=== PATIENT | male | born 1960 | race Caucasian/White ===

== ENCOUNTER 2021-11-18 15:34 | Outpatient (REF) | payer BC, SELFPAY ==
--- NOTE | ~2021-11-18 | XR_ITS ---
EXAMINATION: XR CHEST CLINICAL INFORMATION: Dyspnea COMPARISON: None TECHNIQUE: 2 views of the chest were obtained. FINDINGS: There is no evidence of acute parenchymal disease, pneumothorax, or pleural effusion. Heart normal size. No evidence of pulmonary edema. There is a prominent right pericardial fat pad. XR/XR chest 2V IMPRESSION: No acute disease.
[2021-11-18 16:41] LABS: MANUAL DIFF FLAG NO
[2021-11-18 17:14] LABS: Basophils Percent Auto 0.5 % (0-2); Eosinophils Absolute Auto 0.6 X10*3/uL (0.0-0.4); Eosinophils Percent Auto 7.9 % (0-4); Hematocrit 25.3 % (42.0-52.0); Imm Gran Abs Auto 0.03 X10*3/uL (0.00-0.03); Imm Gran Pct Auto 0.4 % (0.0-0.4); Lymphocytes Absolute Auto 1.9 X10*3/uL (1.2-4.9); Lymphocytes Percent Auto 25.4 % (20-40); Mean Corpuscular HGB Conc 26.5 g/dl (31.0-36.0); Mean Corpuscular Hemoglobin 19.1 pg (27.0-33.0); Mean Corpuscular Volume 72.3 fL (80.0-98.0); Mean Platelet Volume 10.1 fL (9.4-12.4); Monocytes Absolute Auto 0.6 X10*3/uL (0.1-1.2); Monocytes Percent Auto 7.8 % (2-11); Neutrophils Absolute Auto 4.3 x10*3/uL (2.0-8.3); Platelet Count 291 X10*3/uL (160-400); Red Cell Distribution Width 19.3 % (11.0-16.0); White Blood Count 7.4 X10*3/uL (4.8-10.8)
[2021-11-18 17:34] LABS: Hemoglobin 6.7 g/dl (14.0-18.0)
[2021-11-18 17:57] LABS: Ferritin 4 ng/mL (20-250)
== END 2021-11-18 15:35 | disposition home or self-care (01) ==
LOC: HO.LAB 15:34
PROVIDERS: PCP Internal Medicine; Visit Provider Internal Medicine
DX: R06.00 Dyspnea, unspecified (principal); D64.9 Anemia, unspecified
CPT/HCPCS: 36415; 71046; 82728; 85025

== ENCOUNTER → 2022-06-24 15:58 | Outpatient (BNVA) | payer BC, SELFPAY | PROVIDERS: PCP Nurse Practitioner Primary Care; Visit Provider Internal Medicine | DX: Z13.89 Encounter for screening for other disorder (principal) ==

== ENCOUNTER 2022-07-03 14:47 | Outpatient (REF) | payer BC, SELFPAY ==
--- NOTE | 2022-07-03 17:22 | PFT_ITS ---
Forced vital capacity is 89%, FEV1 of 83%, FEV1/FVC ratio is 70. KYS21-53 of 66% and MVV is 83%. Post bronchodilator therapy, there is slight improvement in FEV1 and IBN22-97. Total lung capacity 86% and residual volume 85%. Diffusion capacity 66%. CONCLUSION: There is evidence of mild obstructive airway disorder with significant response to bronchodilator therapy. This finding is consistent with mild bronchial asthma. Clinical correlation is recommended. John Farmer MD MSB/MODL / [id number]
== END 2022-07-03 14:48 | disposition home or self-care (01) ==
LOC: HO.RESP 14:47
PROVIDERS: PCP Nurse Practitioner Primary Care; Visit Provider Internal Medicine
DX: J45.909 Unspecified asthma, uncomplicated (principal)
CPT/HCPCS: 94060; 94727; 94729

== ENCOUNTER 2022-07-21 14:49 | Outpatient (REF) | payer BC, SELFPAY ==
[2022-07-21 15:30] LABS: MANUAL DIFF FLAG NO
[2022-07-21 16:26] LABS: Basophils Percent Auto 0.5 % (0-2); Eosinophils Absolute Auto 0.9 X10*3/uL (0.0-0.4); Eosinophils Percent Auto 10.7 % (0-4); Hematocrit 37.9 % (42.0-52.0); Hemoglobin 11.3 g/dl (14.0-18.0); Imm Gran Abs Auto 0.03 X10*3/uL (0.00-0.03); Imm Gran Pct Auto 0.4 % (0.0-0.4); Lymphocytes Absolute Auto 2.4 X10*3/uL (1.2-4.9); Lymphocytes Percent Auto 28.8 % (20-40); Mean Corpuscular HGB Conc 29.8 g/dl (31.0-36.0); Mean Corpuscular Hemoglobin 24.8 pg (27.0-33.0); Mean Corpuscular Volume 83.1 fL (80.0-98.0); Monocytes Absolute Auto 0.8 X10*3/uL (0.1-1.2); Monocytes Percent Auto 9.2 % (2-11); Neutrophils Absolute Auto 4.3 x10*3/uL (2.0-8.3); Neutrophils Percent Auto 50.4 % (45-73); Platelet Count 333 X10*3/uL (160-400); Red Blood Count 4.56 X10*6/uL (4.60-5.80); Red Cell Distribution Width 15.9 % (11.0-16.0); White Blood Count 8.5 X10*3/uL (4.8-10.8)
== END 2022-07-21 14:50 | disposition home or self-care (01) ==
LOC: HO.LAB 14:49
PROVIDERS: PCP Nurse Practitioner Primary Care; Visit Provider Internal Medicine
DX: J45.909 Unspecified asthma, uncomplicated (principal); D64.9 Anemia, unspecified; Z79.899 Other long term (current) drug therapy
CPT/HCPCS: 36415; 85025

== ENCOUNTER 2023-01-20 14:55 | Outpatient (AMB) | payer BC, SELFPAY ==
--- NOTE | 2023-01-20 15:23 | MHC.OFFVIS ---
Intake Vital Signs 01/20/23 15:24 Height 5 ft 6 in Weight 157 lb BMI 25.3 BP 120/70 Blood Pressure Location Lt brachial Position Sitting Pulse 53 Pulse Source Pulse Oximeter Pulse Oximetry (%) 99 Oxygen Delivery Method Room Air Intake Visit Reasons: S/p pft Intake Note: pt is here for follow up and states his breathing is fine, every once in a while he uses his rescue. does not use the nasal spray anymore. Steamer Blocker Required: No Allergies amoxicillin Allergy (Unknown, Verified 01/20/23 15:37) rash Medication List - Last Reconciled 01/20/23 by John Farmer MD albuterol sulfate 90 mcg/actuation 2 puffs inhalation Q4-6H PRN cetirizine (Zyrtec) 10 mg PO DAILY PRN fluticasone propionate 110 mcg/actuation (Flovent HFA) 2 puffs inhalation BID PRN Do you need a note to return to daycare/school/sports/work: No HPI S/p pft HPI Details 62 years old gentleman is here for 6 months follow-up. He has mild intermittent bronchial asthma. He was using Flovent-110 2 puffs b.i.d. for a few months, and then he actually stopped using it. He has been depending upon the rescue inhaler for emergencies. Uses albuterol HFA about once or twice a week at the most. He denies any wheezes or cough. He still has some nasal congestion off and on and uses Zyrtec 10 mg p.r.n. His anemia has been corrected. So he no longer has any dyspnea on exertion. [facility] Medical History Allergic rhinitis Anemia Asthma Dyspnea on exertion Social History Patient Tobacco Use Status: Never used Tobacco Review of Systems Const All systems reviewed & are unremarkable except as noted in HPI and below Eyes Reports no additional complaints ENT Reports no additional complaints Card Denies chest pain, Denies irregular heart rhythm and Denies leg edema Resp Reports as per HPI (SHORTNESS OF BREATH ON EXERTION IS THE ALMOST RESOLVED) GI Reports other (History of ulcerative colitis in the past.) Reports no additional complaints Musc Reports no additional complaints Skin/Breast Reports system reviewed and no additional complaints, except as documented Neuro Reports no additional complaints Physical Exam Vital Signs: Last Vital Signs Pulse 53 01/20/23 15:24 BP 120/70 01/20/23 15:24 Pulse Ox 99 01/20/23 15:24 Oxygen Delivery Method Room Air 01/20/23 15:24 BMI result Body Mass Index 25.3 Const General: healthy appearing, comfortable, no acute distress, alert and awake Orientation/consciousness: patient oriented x3 HEENT Head: Yes normal to inspection General nose exam: No nasal polyps present and No nasal discharge present Face and sinus: Yes sinuses nontender Mouth: oropharynx normal Throat: Yes posterior oropharynx normal Eyes General: appearance normal, both eyes and all related structures Neck Neck: Yes normal visual inspection, Yes no lymphadenopathy, Yes trachea midline and Yes no JVD Thyroid: Thyroid normal Chest Chest palpation & inspection: abnormal inspection of the chest (There is a mild deformity of the left ribcage, probably related to old rib ), normal palpation of entire chest wall and no tenderness Resp Effort & Inspection: normal respiratory effort Auscultation: clear to auscultation bilaterally, no crackles and no wheezes Cardio Palpation: normal PMI Rate: regular rate Rhythm: regular rhythm Heart sounds: no gallops and no murmurs Peripheral pulses: Peripheral pulses 2+ throughout GI Palpation (GI): Soft to palpation, nontender, No hepatosplenomegaly present and no masses Auscultation: normal bowel sounds Back/Spine/Pelvis Thoracic/Lumbar Spine: thoracic and lumbar spine normal to inspection Skin General skin exam: no rashes or lesions noted Neuro General: patient oriented x3 and no focal motor deficits Cranial nerves: Yes CN's II-XII intact bilaterally Extrem General: Yes normal to inspection, Yes no clubbing, cyanosis or edema and Yes no calf tenderness Psych Speech and movement: Normal speech and movement present Assessment & Plan Assessment & Plan (1) Asthma: Comment: HISTORY IS SUGGESTIVE OF MILD INTERMITTENT BRONCHIAL ASTHMA. PULMONARY FUNCTION TEST SHOWED MILD BRONCHIAL ASTHMA. TX:WAS TREATED WITH FLOVENT -110 2 PUFFS B.I.D. WHICH HE HAS NOW STOPPED USING. USES ALBUTEROL HFA 1 OR 2 PUFFS Q 6 HOURS ONLY FOR EMERGENCY, AND IS USING VERY INFREQUENTLY. NO NEED TO USE FLOVENT AT THIS TIME. Code(s): J45.909 - Unspecified asthma, uncomplicated (2) Allergic rhinitis: Comment: MILD INTERMITTENT, NO SPECIFIC TRIGORS. TX ; CLARITIN OR ZYRTEC PRN NO NEED TO USE SINGULAIR .. Code(s): J30.9 - Allergic rhinitis, unspecified (3) Anemia: Comment: WHEN SEEN IN NOVEMBER OF 2021 HE WAS VERY ANEMIC. THAT BEING THE MAIN REASON FOR HIS DYSPNEA ON EXERTION. IT HAS BEEN TREATED AND NOW HE FEELS FINE. HE TELLS ME THAT LAST HEMOGLOBIN WAS 15.2. Code(s): D64.9 - Anemia, unspecified Coding Level of Care Code Est Pt Level 3 (81333) Diagnoses Asthma J45.909 Allergic rhinitis J30.9 Anemia D64.9
[2023-01-20 15:24] VITALS: BP 120/70; PULSE 53; O2SAT 99; BMI 25.3
== END 2023-01-20 15:44 | disposition home or self-care (01) ==
PROVIDERS: PCP Nurse Practitioner Primary Care; Visit Provider Internal Medicine
DX: J45.909 Unspecified asthma, uncomplicated (principal); D64.9 Anemia, unspecified
CPT/HCPCS: 99213

== ENCOUNTER → 2023-01-20 14:55 | Outpatient (BNVA) | payer BC, SELFPAY | PROVIDERS: PCP Nurse Practitioner Primary Care; Visit Provider Internal Medicine ==

== ENCOUNTER 2023-07-27 09:53 | Outpatient (AMB) | payer BC, SELFPAY ==
--- NOTE | 2023-07-27 09:58 | MHC.OFFVIS ---
Intake Vital Signs 07/27/23 09:59 Height 5 ft 6 in Weight 152 lb 1.903 oz BMI 24.5 BP 120/70 Blood Pressure Location Lt brachial Position Sitting Pulse 60 Pulse Source Pulse Oximeter Pulse Oximetry (%) 97 Oxygen Delivery Method Room Air Intake Visit Reasons: S/p pft Intake Note: pt is here for follow up and states he has been having some wheezing and nasal congestion, random wheezing attacks. Linseed Oil Press Tender Required: No Allergies amoxicillin Allergy (Unknown, Verified 07/27/23 10:07) rash Medication List - Last Reconciled 07/27/23 by John Farmer MD albuterol sulfate 90 mcg/actuation 2 puffs inhalation Q4-6H PRN cetirizine (Zyrtec) 10 mg PO DAILY PRN fluticasone propionate 110 mcg/actuation (Flovent HFA) 2 puffs inhalation BID PRN HPI S/p pft HPI Details 62 YEARS OLD GENTLEMAN IS HERE FOR FOLLOW-UP AFTER 6 MONTHS. HE IS A CASE OF MILD ALLERGIC RHINITIS/BRONCHIAL ASTHMA. HE HAS 2 CATS AT HOME, HE DOES HAVE BOUTS OF COUGH AT NIGHT. DENIES ANY ATTACKS OF WHEEZING OR RUNNY NOSE. [facility] Medical History Asthma Allergic rhinitis Anemia Dyspnea on exertion Social History Patient Tobacco Use Status: Never used Tobacco Review of Systems Const All systems reviewed & are unremarkable except as noted in HPI and below Eyes Reports no additional complaints ENT Reports no additional complaints Card Denies chest pain, Denies irregular heart rhythm and Denies leg edema Resp Reports as per HPI (SHORTNESS OF BREATH ON EXERTION IS THE ALMOST RESOLVED) GI Reports other (History of ulcerative colitis in the past.) Reports no additional complaints Musc Reports no additional complaints Skin/Breast Reports system reviewed and no additional complaints, except as documented Neuro Reports no additional complaints Physical Exam Vital Signs: Last Vital Signs Pulse 60 07/27/23 09:59 BP 120/70 07/27/23 09:59 Pulse Ox 97 07/27/23 09:59 Oxygen Delivery Method Room Air 07/27/23 09:59 BMI result Body Mass Index 24.5 Const General: healthy appearing, comfortable, no acute distress, alert and awake Orientation/consciousness: patient oriented x3 HEENT Head: Yes normal to inspection General nose exam: No nasal polyps present and No nasal discharge present Face and sinus: Yes sinuses nontender Mouth: oropharynx normal Throat: Yes posterior oropharynx normal Eyes General: appearance normal, both eyes and all related structures Neck Neck: Yes normal visual inspection, Yes no lymphadenopathy, Yes trachea midline and Yes no JVD Thyroid: Thyroid normal Chest Chest palpation & inspection: abnormal inspection of the chest (There is a mild deformity of the left ribcage, probably related to old rib ), normal palpation of entire chest wall and no tenderness Resp Effort & Inspection: normal respiratory effort Auscultation: clear to auscultation bilaterally, no crackles and no wheezes Cardio Palpation: normal PMI Rate: regular rate Rhythm: regular rhythm Heart sounds: no gallops and no murmurs Peripheral pulses: Peripheral pulses 2+ throughout GI Palpation (GI): Soft to palpation, nontender, No hepatosplenomegaly present and no masses Auscultation: normal bowel sounds Back/Spine/Pelvis Thoracic/Lumbar Spine: thoracic and lumbar spine normal to inspection Skin General skin exam: no rashes or lesions noted Neuro General: patient oriented x3 and no focal motor deficits Cranial nerves: Yes CN's II-XII intact bilaterally Extrem General: Yes normal to inspection, Yes no clubbing, cyanosis or edema and Yes no calf tenderness Psych Speech and movement: Normal speech and movement present Assessment & Plan Assessment & Plan (1) Asthma: Comment: HE HAS MILD INTERMITTENT BRONCHIAL ASTHMA. ALLERGIC IN TYPE PULMONARY FUNCTION TEST SHOWED MILD BRONCHIAL ASTHMA. Code(s): J45.909 - Unspecified asthma, uncomplicated Plan: TX: EXPLAINED TO HIM THAT HE JUST NEEDS TO USE ALBUTEROL HFA 2 PUFFS Q 4-6 HOURS P.R.N.. HE DOES NOT NEED TO USE THE MAINTENANCE INHALER, FLOVENT. ADVISED TO STAY AT A DISTANCE FROM THE CATS. (2) Allergic rhinitis: Comment: MILD INTERMITTENT, NO SPECIFIC TRIGORS. Code(s): J30.9 - Allergic rhinitis, unspecified Plan: TX ; CLARITIN OR ZYRTEC PRN [id number] 2 SPRAY EACH NOSTRIL DAILY, P.R.N. Coding Level of Care Code Est Pt Level 3 (58947) Diagnoses Asthma J45.909 Allergic rhinitis J30.9
[2023-07-27 09:59] VITALS: BP 120/70; PULSE 60; O2SAT 97; BMI 24.5
== END 2023-07-27 10:19 | disposition home or self-care (01) ==
PROVIDERS: PCP Nurse Practitioner Primary Care; Referring Provider Nurse Practitioner Primary Care; Visit Provider Internal Medicine
DX: J45.909 Unspecified asthma, uncomplicated (principal); J30.9 Allergic rhinitis, unspecified
CPT/HCPCS: 99213

== ENCOUNTER → 2023-07-27 09:53 | Outpatient (BNVA) | payer BC, SELFPAY | PROVIDERS: PCP Nurse Practitioner Primary Care; Visit Provider Internal Medicine ==

== ENCOUNTER 2024-01-28 09:43 | Outpatient (REF) | payer BC, SELFPAY ==
[2024-01-28 10:24] LABS: MANUAL DIFF FLAG NO
[2024-01-28 10:53] LABS: Basophils Percent Auto 0.5 % (0-2); Eosinophils Absolute Auto 0.5 X10*3/uL (0.0-0.4); Eosinophils Percent Auto 7.4 % (0-4); Hematocrit 45.9 % (42.0-52.0); Hemoglobin 15.4 g/dl (14.0-18.0); Imm Gran Abs Auto 0.01 X10*3/uL (0.00-0.03); Imm Gran Pct Auto 0.2 % (0.0-0.4); Lymphocytes Absolute Auto 2.1 X10*3/uL (1.2-4.9); Lymphocytes Percent Auto 32.7 % (20-40); Mean Corpuscular HGB Conc 33.6 g/dl (31.0-36.0); Mean Corpuscular Hemoglobin 32.6 pg (27.0-33.0); Monocytes Absolute Auto 0.7 X10*3/uL (0.1-1.2); Monocytes Percent Auto 10.3 % (2-11); Neutrophils Absolute Auto 3.1 x10*3/uL (2.0-8.3); Neutrophils Percent Auto 48.9 % (45-73); Platelet Count 228 X10*3/uL (160-400); Red Blood Count 4.73 X10*6/uL (4.60-5.80); Red Cell Distribution Width 12.7 % (11.0-16.0); White Blood Count 6.3 X10*3/uL (4.8-10.8)
[2024-02-12 01:48] LABS: IgE Antibody (Anti-IgE IgG) 240 ng/mL (<168)
== END 2024-01-28 09:44 | disposition home or self-care (01) ==
LOC: HO.LAB 09:43
PROVIDERS: PCP Nurse Practitioner Primary Care; Visit Provider Internal Medicine
DX: J45.909 Unspecified asthma, uncomplicated (principal); J30.9 Allergic rhinitis, unspecified
CPT/HCPCS: 36415; 83520; 85025

== ENCOUNTER 2024-01-28 09:43 | Outpatient (AMB) | payer BC, SELFPAY ==
[2024-01-28 09:46] VITALS: BP 110/68; PULSE 57; O2SAT 98; BMI 23.3
--- NOTE | 2024-01-28 09:46 | A.OFFVIS_ITS ---
Vital Signs 01/28/24 09:46 Height 5 ft 6 in Weight 144 lb 6.444 oz BMI 23.3 BP 110/68 Blood Pressure Location Lt brachial Position Sitting Pulse 57 Pulse Source Pulse Oximeter Pulse Oximetry (%) 98 Oxygen Delivery Method Room Air Intake Visit Reasons: Dyspnea Intake Note: pt is here for follow up and states he is okay, some allergy flare up. for no reason. Clinic Office Assistant Required: No Allergies amoxicillin Allergy (Unknown, Verified 01/28/24 10:05) rash Medication List - Last Reconciled 01/28/24 by John Farmer MD albuterol sulfate 90 mcg/actuation 2 puffs inhalation Q4-6H PRN 30 days cetirizine (Zyrtec) 10 mg PO DAILY PRN fluticasone propionate 110 mcg/actuation (Flovent HFA) 2 puffs inhalation BID PRN Do you need a note to return to daycare/school/sports/work: No HPI HPI Dyspnea: Details: THIS 63 YEARS OLD GENTLEMAN COMES FOR FOLLOW-UP AFTER 6 MONTHS FOR HIS ALLERGIC RHINITIS AND BRONCHIAL ASTHMA. HE STATES THAT OVERALL HIS SYMPTOMS ARE WELL CONTROLLED AND HE NEEDS TO USE THE RESCUE INHALER ONLY ONCE IN A WHILE. HE DOES HAVE ALBUTEROL HFA ON HAND AND ALSO HAS FLOVENT-110 INHALER WHICH HE USES ONCE IN A WHILE IF SYMPTOMS GET WORSE. HE STILL HAS HIS CAT AT HOME , BUT SAY IS THAT HE DOES NOT GET ANY ACUTE ATTACK WHEN. HE IS IN CONTACT WITH THE CT HE HAS ONGOING NASAL CONGESTION MOSTLY ON THE LEFT SIDE. WHEEZING AND COUGH. OR VERY INFREQUENT [facility] Medical History Asthma Allergic rhinitis Anemia Dyspnea on exertion Social History Patient Tobacco Use Status: Never used Tobacco Review of Systems Const All systems reviewed & are unremarkable except as noted in HPI and below Eyes Reports no additional complaints ENT Reports no additional complaints Card Denies chest pain, Denies irregular heart rhythm and Denies leg edema Resp Reports as per HPI (SHORTNESS OF BREATH ON EXERTION IS THE ALMOST RESOLVED) GI Reports other (History of ulcerative colitis in the past.) Reports no additional complaints Musc Reports no additional complaints Skin/Breast Reports system reviewed and no additional complaints, except as documented Neuro Reports no additional complaints Physical Exam Const General: healthy appearing, comfortable, no acute distress, alert and awake Orientation/consciousness: patient oriented x3 HEENT Head: Yes normal to inspection General nose exam: nasal polyps (HE DOES HAVE A SMALL NASAL POLYP IN THE LEFT NOSTRIL) and No nasal discharge present Face and sinus: Yes sinuses nontender Mouth: oropharynx normal Throat: Yes posterior oropharynx normal Eyes General: appearance normal, both eyes and all related structures Neck Neck: Yes normal visual inspection, Yes no lymphadenopathy, Yes trachea midline and Yes no JVD Thyroid: Thyroid normal Chest Chest palpation & inspection: abnormal inspection of the chest (There is a mild deformity of the left ribcage, probably related to old rib ), normal palpation of entire chest wall and no tenderness Resp Effort & Inspection: normal respiratory effort Auscultation: clear to auscultation bilaterally, no crackles and no wheezes Cardio Palpation: normal PMI Rate: regular rate Rhythm: regular rhythm Heart sounds: no gallops and no murmurs Peripheral pulses: Peripheral pulses 2+ throughout GI Palpation (GI): Soft to palpation, nontender, No hepatosplenomegaly present and no masses Auscultation: normal bowel sounds Back/Spine/Pelvis Thoracic/Lumbar Spine: thoracic and lumbar spine normal to inspection Skin General skin exam: no rashes or lesions noted Neuro General: patient oriented x3 and no focal motor deficits Cranial nerves: Yes CN's II-XII intact bilaterally Extrem General: Yes normal to inspection, Yes no clubbing, cyanosis or edema and Yes no calf tenderness Psych Speech and movement: Normal speech and movement present Assessment & Plan Assessment & Plan (1) Allergic rhinitis: Comment: MILD INTERMITTENT, NO SPECIFIC TRIGORS. HE DENIES THAT HE GETS ANY ACUTE ATTACK WHEN HE IS IN CONTACT WITH CAT HE DOES HAVE A SMALL NASAL POLYP IN THE LEFT NOSTRIL. Code(s): J30.9 - Allergic rhinitis, unspecified Category: Medical Plan: ADVISED TO USE FLONASE -50 2 SPRAYS IN EACH NOSTRIL AT LEAST ONCE A DAY USE ZYRTEC 10 MG ONCE A DAY P.R.N. IF THERE IS ACTIVE NASAL CONGESTION. (2) Asthma: Comment: HE HAS MILD INTERMITTENT BRONCHIAL ASTHMA. ALLERGIC IN TYPE PULMONARY FUNCTION TEST SHOWED MILD BRONCHIAL ASTHMA. SEEMS TO BE UNDER GOOD CONTROL AT THIS TIME. Code(s): J45.909 - Unspecified asthma, uncomplicated Category: Medical Plan: USE ALBUTEROL HFA 2 PUFFS Q 4-6 HOURS ONLY P.R.N.. DOES HAVE FLOVENT-110 AT HOME, ADVISE THAT HE CAN USE IT FOR A FEW WEEKS ONLY IF SYMPTOMS BECOME ACTIVE. CBC WITH DIFF AND IGE LEVEL OR ORDERED. Orders: Orders Complete Blood Count Auto Diff Today J30.9 - Allergic rhinitis, unspecified, J45.909 - Unspecified asthma, uncomplicated IgE Antibody (Anti-IgE IgG) 1 Day J30.9 - Allergic rhinitis, unspecified, J45.909 - Unspecified asthma, uncomplicated Coding Level of Care Code Est Pt Level 3 (46654) Diagnoses Allergic rhinitis J30.9 Asthma J45.909
== END 2024-01-28 10:02 | disposition home or self-care (01) ==
PROVIDERS: PCP Nurse Practitioner Primary Care; Visit Provider Internal Medicine
DX: J30.9 Allergic rhinitis, unspecified (principal); J45.909 Unspecified asthma, uncomplicated
CPT/HCPCS: 99213

== ENCOUNTER 2025-01-30 09:27 | Outpatient (AMB) | payer BC, SELFPAY ==
--- NOTE | 2025-01-30 09:37 | A.OFFVIS_ITS ---
Vital Signs 01/30/25 09:38 Height 5 ft 7 in Weight 145 lb 8.081 oz BMI 22.8 BP 102/58 L Blood Pressure Location Lt brachial Position Sitting Pulse 56 Pulse Source Pulse Oximeter Pulse Oximetry (%) 99 Oxygen Delivery Method Room Air Intake Visit Reasons: Dyspnea Intake Note: pt is here for follow up and states he is doing well, only random allergy attacks for no reason, itchy ears not much short of breath Application Support Consultant Required: No Allergies amoxicillin Allergy (Unknown, Verified 01/30/25 09:42) rash Medication List - Last Reconciled 01/30/25 by John Farmer MD albuterol sulfate 90 mcg/actuation 2 puffs inhalation Q4-6H PRN 30 days cetirizine (Zyrtec) 10 mg PO DAILY PRN fluticasone propionate 110 mcg/actuation (Flovent HFA) 2 puffs inhalation BID PRN Do you need a note to return to daycare/school/sports/work: No HPI HPI Dyspnea: Details: This 64 years old very pleasant gentleman is here for his yearly visit. He has chronic allergic rhinitis and mild intermittent bronchial asthma. Both these conditions are due to nonspecific environmental allergies, and he also has a cat at home. He uses fluticasone -110 1 or 2 puffs twice a day but only p.r.n.. As well as albuterol HFA 2 puffs PRN. Similarly he uses Zyrtec 10 mg once a day only p.r.n. He states that the attacks of nasal congestion with the irritation in the throat leading to cough and wheezing, come off and on , when he is at home or even when outdoors. These attacks are not necessarily precipitated by closeness to the CAT. In between these episodes , he feels fine, COUNT INCLUDES THE [facility] Medical History Asthma Allergic rhinitis Anemia Dyspnea on exertion Social History Patient Tobacco Use Status: Never used Tobacco Review of Systems Const All systems reviewed & are unremarkable except as noted in HPI and below Eyes Reports no additional complaints ENT Reports no additional complaints Card Denies chest pain, Denies irregular heart rhythm and Denies leg edema Resp Reports as per HPI (SHORTNESS OF BREATH ON EXERTION IS THE ALMOST RESOLVED) GI Reports other (History of ulcerative colitis in the past.) Reports no additional complaints Musc Reports no additional complaints Skin/Breast Reports system reviewed and no additional complaints, except as documented Neuro Reports no additional complaints Physical Exam Const General: healthy appearing, comfortable, no acute distress, alert and awake Orientation/consciousness: patient oriented x3 HEENT Head: Yes normal to inspection General nose exam: nasal polyps (HE DOES HAVE A SMALL NASAL POLYP IN THE LEFT NOSTRIL) and No nasal discharge present Face and sinus: Yes sinuses nontender Mouth: oropharynx normal Throat: Yes posterior oropharynx normal Eyes General: appearance normal, both eyes and all related structures Neck Neck: Yes normal visual inspection, Yes no lymphadenopathy, Yes trachea midline and Yes no JVD Thyroid: Thyroid normal Chest Chest palpation & inspection: abnormal inspection of the chest (There is a mild deformity of the left ribcage, probably related to old rib ), normal palpation of entire chest wall and no tenderness Resp Effort & Inspection: normal respiratory effort Auscultation: clear to auscultation bilaterally, no crackles and no wheezes Cardio Palpation: normal PMI Rate: regular rate Rhythm: regular rhythm Heart sounds: no gallops and no murmurs Peripheral pulses: Peripheral pulses 2+ throughout GI Palpation (GI): Soft to palpation, nontender, No hepatosplenomegaly present and no masses Auscultation: normal bowel sounds Back/Spine/Pelvis Thoracic/Lumbar Spine: thoracic and lumbar spine normal to inspection Skin General skin exam: no rashes or lesions noted Neuro General: patient oriented x3 and no focal motor deficits Cranial nerves: Yes CN's II-XII intact bilaterally Extrem General: Yes normal to inspection, Yes no clubbing, cyanosis or edema and Yes no calf tenderness Psych Speech and movement: Normal speech and movement present Assessment & Plan Assessment & Plan (1) Allergic rhinitis: Comment: MILD INTERMITTENT, NO SPECIFIC TRIGORS. HE DENIES THAT HE GETS ANY ACUTE ATTACK WHEN HE IS IN CONTACT WITH CAT HE DOES HAVE A SMALL NASAL POLYP IN THE LEFT NOSTRIL. Code(s): J30.9 - Allergic rhinitis, unspecified Category: Medical Plan: Cetirizine 10 mg 1 tablet a day p.r.n. (2) Asthma: Comment: HE HAS MILD INTERMITTENT BRONCHIAL ASTHMA. ALLERGIC IN TYPE PULMONARY FUNCTION TEST SHOWED MILD BRONCHIAL ASTHMA. SEEMS TO BE UNDER GOOD CONTROL AT THIS TIME. Code(s): J45.909 - Unspecified asthma, uncomplicated Category: Medical Plan: ADVISED TO USE ALBUTEROL 2 PUFFS Q 6 HOURS P.R.N.. ALSO USES FLUTICASONE-110 1 PUFF A DAY PRN ( 4-5 DAYS A WEEK ) AND 2 PUFFS B.I.D. IF HIS SYMPTOMS GET ANY WORSE. Plan CONTINUE THE SAME. I ALSO ADVISED HIM THAT HE COULD CONTINUE TO FOLLOW-UP WITH THE PRIMARY CARE PHYSICIAN AND SEE ME ONLY IF SYMPTOMS GET WORSE. Medications: Changed From fluticasone propionate 110 mcg/actuation (Flovent HFA) 2 puffs inhalation BID PRN To fluticasone propionate 110 mcg/actuation 2 puffs inhalation BID PRN 12 grams 3RF ASTHMA 30 days Coding Level of Care Code Est Pt Level 3 (22457) Diagnoses Allergic rhinitis J30.9 Asthma J45.909
[2025-01-30 09:38] VITALS: BP 102/58; PULSE 56; O2SAT 99; BMI 22.8
--- OUTSIDE RECORDS SUMMARY | 2025-01-30 09:59 | XMS_ITS | Clinical Summary ---
Author Organization [facility] [address] Address [address] [place] [address] Phone Care Team Providers Care Claims Support Specialist Name Role Phone Magalys Chatman MD Primary Care Provider [phone] Encounters Date Type Department Care Team Description 01/27/2025 Telephone Gastroenterology - [address] [id number] Nikolai Arredondo MD MISSING INFORMATION from Last 3 Months Social History Tobacco Use Types Packs/Day Years Used Date Smoking Tobacco: Never Assessed Sex and Gender Information Value Date Recorded Sex Assigned at Male 01/19/2025 12:47 PM EDT Legal Sex Male 4:41 PM EST Gender Identity Male 01/19/2025 12:47 PM EDT Sexual Orientation Not on file Last Filed Vital Signs Vital Sign Reading Time Taken Comments Blood Pressure - - Pulse - - Temperature - - Respiratory Rate - - Oxygen Saturation - - Inhaled Oxygen Concentration - - Weight 73.9 kg (163 lb) 08/19/2021 2:27 PM EST Height 167.6 cm (5' 6 ) 08/19/2021 2:27 PM EST Body Mass Index 26.31 08/19/2021 2:27 PM EST Plan of Treatment Health Maintenance Due Date Last Done Comments DTaP,Tdap,and Td Vaccines (1 - Tdap) 1979 Pneumococcal Vaccine: 50+ Ye ars (1 of 1 - PCV) 2010 Zoster Vaccines (1 of 2) 2010 Cholesterol Screening (Lipid Panel) 05/14/2022 Colorectal Cancer Screening: Colonoscopy 05/14/2022 HIV Screening 05/14/2022 Hepatitis C Screening 05/14/2022 Social Influencers of Health Screening 05/14/2022 COVID-19 Vaccine (1 - 2023-2 5 season) 2024 Depression Screening 06/15/2024 Influenza Vaccine (#1) 2025 RSV Immunization Adult Patie nts (1 - 1-dose 75+ series) 2035 HIB Vaccines Aged Out No longer eligi ble based on patient's age to complete this topic HPV Vaccines Aged Out No longer eligi ble based on patient's age to complete this topic Hepatitis A Vaccines Aged Out No long er eligible based on patient's age to complete this topic Hepatitis B Vaccines Aged Out No long er eligible based on patient's age to complete this topic IPV Vaccines Aged Out No longer eligi ble based on patient's age to complete this topic MMR Vaccines Aged Out No longer eligi ble based on patient's age to complete this topic Meningococcal ACWY Vaccine Aged Out N o longer eligible based on patient's age to complete this topic Meningococcal B Vaccine Aged Out No l onger eligible based on patient's age to complete this topic RSV Immunization Patients Un yulisa 20 months Aged Out No longer eligible b ased on patient's age to complete this topic Varicella Vaccines Aged Out No longer eligible based on patient's age to complete this topic Insurance [facility] Care Teams Claims Support Specialist Relationship Specialty Start Date End Date Magalys Chatman MD [address] [place] [address] PCP - General Internal Medicine 01/19/25
== END 2025-01-30 09:52 | disposition home or self-care (01) ==
LOC: HO.HPS 09:27
PROVIDERS: PCP Nurse Practitioner Primary Care; Visit Provider Internal Medicine
DX: J30.9 Allergic rhinitis, unspecified (principal); J45.909 Unspecified asthma, uncomplicated
CPT/HCPCS: 99213